=== PATIENT | male | born 2000 | race Two or more races ===

== ENCOUNTER → 2022-11-18 | Day surgery (SDC) | payer OTHER ==
[~2022-11-18] VITALS: Ht 175.3 cm; Wt 95.3 kg
[~2022-11-18] MED LIST: BACTRIM DS TAB1 EACH PO; PERCOCET 5-3251 EACH PO
== END | disposition home or self-care (01) ==
LOC: CIR.AMB 07:59 → EDSTATUS 11:15 → SURH 11:15 → CIR.AMB 11:15
PROVIDERS: ATTEND Surgery
DX: L05.01 Pilonidal cyst with abscess (principal); Z20.822 Contact with and (suspected) exposure to COVID-19

== ENCOUNTER 2022-12-05 10:55 | Emergency (ER) | payer OTHER ==
[~2022-12-05] VITALS: Ht 177.8 cm; Wt 97.5 kg
[2022-12-05] MEDS ORDERED: DICLOFENAC SODI75 MG PO (15:32)
[2022-12-05] MEDS ORDERED: BACTRIM DS TAB1 EACH PO (15:32)
== END 2022-12-05 15:55 | disposition home or self-care (01) ==
LOC: ER 10:55
DX: L05.01 Pilonidal cyst with abscess (principal); L03.90 Cellulitis, unspecified; J03.90 Acute tonsillitis, unspecified